=== PATIENT | female | born 1985 | race African-American/Black ===

== ENCOUNTER 2018-05-12 15:36 | Emergency (ER) | payer BC ==
[2018-05-12 15:47] VITALS: BP 143/82
[2018-05-12] MEDS ORDERED: LIDOCAINE 2% VISCOUS SOLN 20 ML UDCUP PO ONE (17:42)
[2018-05-12] MEDS ORDERED: CLINDAMYCIN HCL 150 MG CAPSULE PO ONE (17:44)
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
== END 2018-05-12 18:34 | disposition home or self-care (01) ==
LOC: ER 15:36
DX: K04.7 Periapical abscess without sinus (principal); K02.9 Dental caries, unspecified; R22.0 Localized swelling, mass and lump, head; K08.89 Other specified disorders of teeth and supporting structures; I10 Essential (primary) hypertension; F12.10 Cannabis abuse, uncomplicated; F17.210 Nicotine dependence, cigarettes, uncomplicated; Z71.6 Tobacco abuse counseling; Z86.14 Personal history of Methicillin resistant Staphylococcus aureus infection
CPT/HCPCS: 99406; 99282; J3490

== ENCOUNTER 2019-02-09 18:38 | Emergency (ER) | payer OTHER, BC ==
[2019-02-09] MEDS ORDERED: ACETAMINOPHEN 325 MG TABLET PO ONE (19:29)
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
[2019-02-10] MEDS ORDERED: HYDROCODONE/ACETAMINOPHEN 5-325 MG TABLET PO ONE (00:28)
[2019-02-10 01:06] VITALS: BP 126/79
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
== END 2019-02-10 01:06 | disposition home or self-care (01) ==
LOC: ER 18:38
DX: S16.1XXA Strain of muscle, fascia and tendon at neck level, initial encounter (principal); S46.912A Strain of unspecified muscle, fascia and tendon at shoulder and upper arm level, left arm, initial encounter; M25.562 Pain in left knee; R07.89 Other chest pain; V89.2XXA Person injured in unspecified motor-vehicle accident, traffic, initial encounter; F17.210 Nicotine dependence, cigarettes, uncomplicated; I10 Essential (primary) hypertension; Z86.14 Personal history of Methicillin resistant Staphylococcus aureus infection
CPT/HCPCS: 71046; 72125; 99284

== ENCOUNTER 2020-10-09 07:41 | Emergency (ER) | payer BC, OTHER ==
[2020-10-09 07:47] VITALS: BP 137/84
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
== END 2020-10-09 08:55 | disposition home or self-care (01) ==
LOC: ER 07:41
DX: L03.213 Periorbital cellulitis (principal); T78.40XA Allergy, unspecified, initial encounter; F17.200 Nicotine dependence, unspecified, uncomplicated; I10 Essential (primary) hypertension; Z86.14 Personal history of Methicillin resistant Staphylococcus aureus infection
CPT/HCPCS: 99283